=== PATIENT | male | born 1995 | race Caucasian/White ===

== ENCOUNTER 2017-02-20 06:00 | Emergency (ER) | payer OTHER ==
[2017-02-20 06:12] VITALS: RESP 16
--- NOTE | 2017-02-20 06:19 | EDPHY ---
H & P Stated Complaint: med clear-uncooperative at [facility] - Personal History Current Tetanus Diphtheria and Acellular Pertussis (TDAP): Unsure - Medical/Surgical History Hx Asthma: No Hx Chronic Respiratory Disease: No Hx Diabetes: No Hx Cardiac Disease: No Hx Renal Disease: No Hx Cirrhosis: No Hx Alcoholism: Yes Hx HIV/AIDS: No Hx Splenectomy or Spleen Trauma: No Other PMH: denies - Social History Smoking Status: Current every day smoker Time Seen by Provider: 02/20/17 06:06 HPI/ROS: Chief Complaint: Decreased mental status HPI: 21-year-old male was brought in from [facility] with a decrease in mental status. Patient was arrested earlier this morning in [place]. When the patient was brought today a he became increasingly responsive with sonorous respirations. He has been brought in for medical clearance. He has admitted to smoking heroin earlier this morning. Denies any other drug use. Denies falls, has not hit his head. No headache. No nausea or vomiting. No fevers or chills. ROS: 10 point Review of Systems is negative except as noted in the HPI. PMH: Denies Social History: Positive smoking, denies alcohol, smokes heroin Family History: non-contributory Physical Exam: Gen: Somnolent, arousable with painful stimuli, maintaining his airway HEENT: Nose: no rhinorrhea Eyes: Pupils are 2 mm and reactive, EOMI Mouth: Moist mucosa Neck: Supple, no JVD Chest: nontender, lungs clear to auscultation Heart: S1, S2 normal, no murmur Abd: Soft, non-tender, no guarding Back: no CVA tenderness, no midline tenderness Ext: no edema, non-tender Skin: no rash Neuro: CN II-XII intact, Sensation grossly intact, Strength 5/5 in bilateral upper and lower extremities (Jared Trejo) Constitutional: Initial Vital Signs Temperature (C) 36.6 C 02/20/17 06:10 Heart Rate 81 02/20/17 06:10 Respiratory Rate 16 02/20/17 06:10 Blood Pressure 124/71 H 02/20/17 06:10 O2 Sat (%) 96 02/20/17 06:10 O2 Delivery Mode Room Air Allergies/Adverse Reactions: No Known Allergies Allergy (Verified 02/20/17 06:09) Home Medications: Medication Instructions Recorded NK [No Known Home Meds] 02/20/17 Medical Decision Making ED Course/Re-evaluation: 21-year-old male here somnolent from [facility] after smoking heroin. Is somnolent but is arousable to noxious stimuli. He is maintaining his airway. His hemodynamics are otherwise normal. He has no evidence of trauma. He is currently without complaint. Patient is medically clear for [facility]. (Jared Trejo) 9:40 a.m.-the patient is now awake and able to ambulate with a steady gait. He will be discharged to [facility]. (Danni Woodson) Departure - Departure Disposition: Home, Routine, Self-Care Clinical Impression: Narcotic abuse Condition: Good Instructions: Narcotic Abuse (ED) Additional Instructions: Medically clear for [facility]. Referrals: Irma Sparks MD [place] [place] - As per Instructions
[2017-02-20 09:46] VITALS: BP 118/91; PULSE 82; TEMP 97.7; O2SAT 98
== END 2017-02-20 09:45 | disposition home or self-care (01) ==
DX: F11.10 Opioid abuse, uncomplicated (principal); F17.200 Nicotine dependence, unspecified, uncomplicated